=== PATIENT | female | born 1980 | race Caucasian/White ===

== ENCOUNTER 2016-12-29 11:06 | Inpatient (IN) | payer OTHER ==
[~2016-12-29] VITALS: Ht 158 cm; Wt 71.2 kg
[2016-12-29 11:21] VITALS: BP 103/66
[2016-12-29] MEDS ORDERED: PREN1TAB80 PO (11:22)
[2016-12-29] MEDS ORDERED: RINGERS SOLUTION,LACTATED 1,000 ML IV ONE (12:51)
[2016-12-29] MEDS ORDERED: RINGERS SOLUTION,LACTATED 1,000 ML IV SCH (13:50)
[2016-12-29] MEDS ORDERED: OXYTOCIN 30 UNITS/LACT RINGERS 500 ML IV PRN (13:50)
[2016-12-29] MEDS ORDERED: RINGERS SOLUTION,LACTATED 1,000 ML IV PRN (13:50)
[2016-12-29] MEDS ORDERED: OXYTOCIN 30 UNITS/LACT RINGERS 500 ML IV ONE (13:50)
[2016-12-29] MEDS ORDERED: FentaNYL CITRATE-PF 100 MCG/2 ML VIAL IVP PRN (14:00)
[2016-12-29] MEDS ORDERED: METOCLOPRAMIDE HCL 5 MG/ML 2 ML VIAL IVP PRN (14:00)
[2016-12-29] MEDS ORDERED: METHYLERGONOVINE MALEATE 0.2 MG/ML VIAL IM PRN (14:00)
[2016-12-29] MEDS ORDERED: LIDOCAINE HCL/PF 1% 30 ML VIAL INJ PRN (14:00)
[2016-12-29] MEDS ORDERED: CITRIC ACID/SODIUM CITRATE 30 ML SOLUTION UDCUP PO PRN (14:00)
[2016-12-29 14:26] LABS: BASOPHILS # (AUTO) 0.08 K/uL (0.00-0.20); BASOPHILS % (AUTO) 0.5 % (0.0-2.0); EOSINOPHILS # (AUTO) 0.07 K/uL (0.00-0.70); EOSINOPHILS % (AUTO) 0.44 % (1.0-6.0); HEMATOCRIT 33.7 % (36-46); HEMOGLOBIN 11.2 g/dL (12.0-16.0); LYMPHOCYTES # (AUTO) 2.2 K/uL (1.0-4.8); MEAN CORPUSCULAR HEMOGLOBIN 28.5 pg (26.0-34.0); MEAN CORPUSCULAR HGB CONC 33.2 G/dL (31.0-37.0); MEAN CORPUSCULAR VOLUME 86 fL (80-100); MONOCYTES # (AUTO) 0.6 K/uL (0.1-1.0); MONOCYTES % (AUTO) 4.4 % (2.0-9.0); NEUTROPHILS # (AUTO) 11.8 K/uL (1.8-7.7); NEUTROPHILS % (AUTO) 79.7 % (40.0-70.0); RED BLOOD CELL COUNT(AUTO) 3.92 MIL/uL (4.00-5.20); RED CELL DISTRIBUTION WIDTH 13.7 % (11.5-14.5); WHITE BLOOD COUNT (AUTO) 14.8 K/uL (4.5-11.0)
[2016-12-29] MEDS ORDERED: FentaNYL/BUPIV 0.125%/NS/PF 200 ML ED ONE (15:22)
[2016-12-29] MEDS ORDERED: FentaNYL/BUPIV 0.125%/NS/PF 200 ML ED PRN (15:52)
[2016-12-29] MEDS ORDERED: DiphenhydrAMINE HCL 50 MG/ML VIAL IVP PRN (16:00)
[2016-12-29] MEDS ORDERED: ONDANSETRON HCL 4 MG/2 ML VIAL IVP PRN (16:00)
[2016-12-29] MEDS ORDERED: CeFAZolin 2 GM/DEXTROSE 50 ML IV ONE ×2 (17:51→18:00)
[2016-12-29] MEDS ORDERED: ACETAMINOPHEN/CODEINE 300-30 MG TABLET PO PRN ×2 (18:00)
[2016-12-29] MEDS ORDERED: BENZOCAINE 20%/MENTHOL 56 GM SPRAY CANISTER TP PRN (18:00)
[2016-12-29] MEDS ORDERED: GLYCERIN/WITCH HAZEL LEAF 40 PADS JAR TP PRN (18:00)
[2016-12-29] MEDS ORDERED: LANOLIN 7 GM OINTMENT TP PRN (18:00)
[2016-12-29] MEDS: IBUPROFEN 800 MG TABLET PO SCH (18:55)
[2016-12-29] MEDS ORDERED: OXYGEN THERAPY IH SCH (20:00)
[2016-12-29] MEDS ORDERED: MAGNESIUM HYDROXIDE SUSPENSION 30 ML UDCUP PO SCH (21:00)
[2016-12-30] MEDS: IBUPROFEN 800 MG TABLET PO SCH ×3 (00:58→12:48)
[2016-12-30] MEDS ORDERED: CALCIUM CARBONATE 500 MG CHEWABLE TABLET CHEW ONE (13:15)
[2016-12-30] MEDS ORDERED: IBUP-2070 PO (18:25)
[2016-12-30] MEDS ORDERED: FERR-89 PO (18:27)
[2016-12-30] MEDS ORDERED: DSS100 PO (18:28)
== END 2016-12-30 19:28 | disposition home or self-care (01) | DRG 775 ==
LOC: OBSVTOIN 11:06 → 4S 11:06
PROVIDERS: ADMIT Obstetrics & Gynecology; ATTEND Obstetrics & Gynecology
PROC: 10D07Z6 Extraction of Products of Conception, Vacuum, Via Natural or Artificial Opening (ICD-10-PCS; principal; 2016-12-29)
PROC: 10907ZC Drainage of Amniotic Fluid, Therapeutic from Products of Conception, Via Natural or Artificial Opening (ICD-10-PCS; 2016-12-29)
PROC: 0W8NXZZ Division of Female Perineum, External Approach (ICD-10-PCS; 2016-12-29)
DX: O76 Abnormality in fetal heart rate and rhythm complicating labor and delivery (principal); Z37.0 Single live birth; Z3A.39 39 weeks gestation of pregnancy; O09.523 Supervision of elderly multigravida, third trimester
CPT/HCPCS: 86850; 86900; 86901; J0690; J2590; J3490; J7120